=== PATIENT | male | born 1980 | race Caucasian/White ===

== ENCOUNTER 2016-03-08 19:53 | Emergency (ER) | payer OTHER ==
[~2016-03-08] VITALS: Ht 180.3 cm; Wt 78.3 kg
[~2016-03-08 19:53] MED LIST: ACIDOPHILUS LA1 EACH PO; ADVIL,NUPRIN,M200 MG PO; ALPRAZOLAM1 MG PO; ATARAX,VISTARIL50 MG PO; ATARAX10 MG PO; ATIVAN1 MG PO; ATIVAN2 MG PO; BACTRIM,SEPT1 TABLET PO; BACTROBAN OINTM22 GM TP; CLEOCIN300 MG PO; CLONIDINE HCL0.1 MG PO; CLONIDINE HCL0.3 MG PO; CYANOCOBALAM1000 MCG PO; DIAZEPAM10 MG PO; DISULFIRAM250 MG PO; EXCEDRIN MIGRA1 EAC3 PO; FIORICET 50-301 EACH PO; FIORICET,ESG1 TABLET PO; FLAGYL500 MG PO; FLEXERIL10 MG PO; FLEXERIL5 MG PO; FOLIC ACID1 MG PO; GABAPENTIN600 MG PO; HYDROCODON-ACE1 EAC7 PO; HYDROXYZINE HCL50 MG PO; HYDROXYZINE PAM50 MG PO; INDOCIN50 MG PO; KENALOG,ARISTOC80 G1 TP; KEPPRA500 MG PO; LIBRIUM10 MG PO; LIBRIUM25 MG PO; LISINOPRIL20 MG PO; LORAZEPAM1 MG PO; LORTAB 5-325 M1 EACH PO; MOTRIN IB200 MG PO; MOTRIN800 MG PO; NAPROSYN500 MG PO; NEURONTIN600 MG PO; NICOTINE PATCH1 EAC1 TD; ONDANSETRON HCL4 MG PO; PEN-VEE K,VEET500 MG PO; PERCOCET 5/31 TABLET PO; PRAZOSIN HCL1 MG PO; PREDNISONE10 M1 PO; PREDNISONE50 MG PO; PRILOSEC20 MG PO; PROMETHAZINE HC25 M1 PO; RIZATRIPTAN10 MG PO; STADOL NASAL2.5 ML NS; SUBOXONE 4 MG-1 EACH SL; SUBOXONE 8 MG-1 EAC2 SL; THERAGRAN1 TABLET PO; THIAMINE HCL100 MG PO; TYLENOL REGULA325 MG PO; Thiamine,Vitamin B1 PO; ULTRAM50 MG PO; VALIUM5 MG PO; VITAMIN B-1100 MG PO; VYVANSE70 MG PO; XANAX0.5 MG PO; XANAX1 MG PO; ZESTRIL10 MG PO; ZESTRIL20 MG PO; ZOFRAN ODT4 MG PO; ZOFRAN4 MG PO; ZOLOFT100 MG PO; ZOLOFT25 MG PO
[2016-03-08 20:32] VITALS: BP 147/101
== END 2016-03-08 22:11 | disposition left against medical advice (07) ==
LOC: EME 19:53
DX: F10.10 Alcohol abuse, uncomplicated (principal); Z53.21 Procedure and treatment not carried out due to patient leaving prior to being seen by health care provider
CPT/HCPCS: 80053; 83690; 85027; G0480

== ENCOUNTER 2016-03-30 14:27 | Emergency (ER) | payer OTHER ==
[~2016-03-30] VITALS: Ht 180.3 cm; Wt 77.1 kg
[2016-03-30 16:58] LABS: HEMATOCRIT 44.5 % (38.0-50.0); MCH 32.2 PG (29.0-34.0); MCHC 35.3 G/DL (30.0-36.0); MCV 91.2 FL (86-99); MEAN PLAT.VOLUME 8.9 uM^3 (9.0-12.4); PLATELET COUNT 349 K/uL (156-360); RBC DIS.WIDTH-CV 13.2 % (11.8-14.6); RBC DIS.WIDTH-SD 43.5 % (39-53); RED BLOOD COUNT 4.88 M/uL (4.00-5.50); WHITE BLOOD COUNT 10.7 K/uL (4.1-10.2)
[2016-03-30 17:11] LABS: CHLORIDE 106 mEq/L (99-109); SODIUM 145 mEq/L (136-147)
[2016-03-30 17:13] LABS: GLUCOSE 96 mg/dL (70-99)
[2016-03-30 17:14] LABS: ANION GAP 14 MEQ/L (2-14)
[2016-03-30 17:15] LABS: TOTAL BILIRUBIN 0.3 mg/dL (0.0-1.0)
[2016-03-30 17:16] LABS: SERUM ETHYL ALCOHOL 332 mg/dL
[2016-03-30 17:17] LABS: ALKALINE PHOSPHATASE 67 IU/L (3-129); GFR ESTIMATE (CALCULATED) > 59 mL/min/
[2016-03-30 17:18] LABS: UREA NITROGEN (BUN) 11 mg/dL (9-23)
[2016-03-30 17:26] LABS: AMPHETAMINE NEGATIVE (500 ng/mL); BARBITURATES NEGATIVE (200 ng/mL); BENZODIAZEPINES PRESUMPTIVE POSITIVE (150 ng/mL); COCAINE NEGATIVE (150 ng/mL); INTERNAL CONTROLS VALID? YES; METHADONE NEGATIVE (200 ng/mL); METHAMPHETAMINE NEGATIVE (500 ng/mL); OPIATES (MORPHINE) NEGATIVE (100 ng/mL); OXYCODONE NEGATIVE (100 ng/mL); PHENCYCLIDINE NEGATIVE (25 ng/mL); PROPOXYPHENE NEGATIVE (300 ng/mL); THC CANNABINOIDS NEGATIVE (50 ng/mL); TRICYCLIC ANTIDEPRESSANTS NEGATIVE (300 ng/mL)
[2016-03-30 17:27] LABS: ADD MEDTOX COMMENT Y
[2016-03-30 18:16] LABS: BENZODIAZEPINES, URINE SCREEN POSITIVE (200 ng/mL)
[2016-03-31] MEDS ORDERED: LIBRIUM25 MG PO (02:30)
[2016-03-31 03:04] VITALS: BP 139/76
== END 2016-03-31 03:05 | disposition home or self-care (01) ==
LOC: EME 14:27
PROVIDERS: Emergency Medicine
DX: F33.8 Other recurrent depressive disorders (principal); R44.3 Hallucinations, unspecified; F10.229 Alcohol dependence with intoxication, unspecified; I10 Essential (primary) hypertension; G43.909 Migraine, unspecified, not intractable, without status migrainosus; F17.200 Nicotine dependence, unspecified, uncomplicated
CPT/HCPCS: 80053; 84999; 85027; 90837; 99281; 99285; G0480; J3360; J3411; J7030

== ENCOUNTER 2016-05-03 12:53 | Emergency (ER) | payer OTHER ==
[~2016-05-03] VITALS: Ht 180.3 cm; Wt 77.4 kg
[2016-05-03 13:46] LABS: HEMATOCRIT 41.5 % (38.0-50.0); MCH 32.7 PG (29.0-34.0); MCHC 36.1 G/DL (30.0-36.0); MCV 90.4 FL (86-99); MEAN PLAT.VOLUME 9.5 uM^3 (9.0-12.4); PLATELET COUNT 203 K/uL (156-360); RBC DIS.WIDTH-CV 12.7 % (11.8-14.6); RBC DIS.WIDTH-SD 41.6 % (39-53); RED BLOOD COUNT 4.59 M/uL (4.00-5.50); WHITE BLOOD COUNT 10.7 K/uL (4.1-10.2)
[2016-05-03 13:57] LABS: CHLORIDE 106 mEq/L (99-109); SODIUM 144 mEq/L (136-147)
[2016-05-03 13:59] LABS: GLUCOSE 81 mg/dL (70-99)
[2016-05-03 14:01] LABS: ANION GAP 11 MEQ/L (2-14); TOTAL BILIRUBIN 0.9 mg/dL (0.0-1.0)
[2016-05-03 14:02] LABS: SERUM ETHYL ALCOHOL 130 mg/dL
[2016-05-03 14:03] LABS: ALKALINE PHOSPHATASE 70 IU/L (3-129); GFR ESTIMATE (CALCULATED) > 59 mL/min/
[2016-05-03 14:04] LABS: UREA NITROGEN (BUN) 15 mg/dL (9-23)
[2016-05-03 14:07] LABS: LIPASE 26 U/L (1.0-51.0)
[2016-05-03 14:28] LABS: ADD MIUA? YES; BILIRUBIN NEGATIVE; BLOOD SMALL; COLOR YELLOW ((YELLOW)); GLUCOSE (STRIP) NEGATIVE; KETONES NEGATIVE; LEUKOCYTES NEGATIVE; NITRITE NEGATIVE; PROTEIN (STRIP) NEGATIVE; SPECIFIC GRAVITY 1.019 (1.000-1.030); UROBILINOGEN 0.2 MG/DL (0.2-1.0)
[2016-05-03 14:30] LABS: BACTERIA NONE SEEN /HPF; EPITHELIAL CELLS RARE /HPF; MUCUS TRACE /LPF; RED BLOOD CELLS 0-5 /HPF (0-5); WHITE BLOOD CELLS 0-5 /HPF (0-5)
[2016-05-03 14:36] LABS: ADD MEDTOX COMMENT Y; AMPHETAMINE NEGATIVE (500 ng/mL); BARBITURATES NEGATIVE (200 ng/mL); BENZODIAZEPINES PRESUMPTIVE POSITIVE (150 ng/mL); COCAINE NEGATIVE (150 ng/mL); INTERNAL CONTROLS VALID? YES; METHADONE NEGATIVE (200 ng/mL); METHAMPHETAMINE NEGATIVE (500 ng/mL); OPIATES (MORPHINE) NEGATIVE (100 ng/mL); OXYCODONE NEGATIVE (100 ng/mL); PHENCYCLIDINE NEGATIVE (25 ng/mL); PROPOXYPHENE NEGATIVE (300 ng/mL); THC CANNABINOIDS NEGATIVE (50 ng/mL); TRICYCLIC ANTIDEPRESSANTS NEGATIVE (300 ng/mL)
[2016-05-03 16:57] LABS: BENZODIAZEPINES, URINE SCREEN POSITIVE (200 ng/mL)
[2016-05-03] MEDS ORDERED: TRAZODONE HCL50 MG PO (16:59)
[2016-05-03] MEDS ORDERED: THIAMINE HCL100 MG PO (16:59)
[2016-05-03] MEDS ORDERED: ATIVAN2 MG PO (16:59)
[2016-05-03 17:13] VITALS: BP 140/92
== END 2016-05-03 17:17 | disposition home or self-care (01) ==
LOC: EME 12:53
PROVIDERS: Physician Assistant Medical
DX: F10.239 Alcohol dependence with withdrawal, unspecified (principal); R31.9 Hematuria, unspecified; R10.30 Lower abdominal pain, unspecified; R11.2 Nausea with vomiting, unspecified; F17.200 Nicotine dependence, unspecified, uncomplicated; Y90.6 Blood alcohol level of 120-199 mg/100 ml
CPT/HCPCS: 80053; 81003; 83690; 84999; 85027; 99281; 99285; G0480

== ENCOUNTER 2016-06-22 15:28 | Inpatient (IN) | payer OTHER ==
[~2016-06-22] VITALS: Ht 180.3 cm; Wt 78.8 kg
[~2016-06-22 15:28] MED LIST changes: +TRAZODONE HCL50 MG PO
[2016-06-22 16:59] LABS: HEMATOCRIT 45.1 % (38.0-50.0); MCH 32.1 PG (29.0-34.0); MCV 91.7 FL (86-99); MEAN PLAT.VOLUME 9.2 uM^3 (9.0-12.4); PLATELET COUNT 316 K/uL (156-360); RBC DIS.WIDTH-CV 12.6 % (11.8-14.6); RBC DIS.WIDTH-SD 42.5 % (39-53); RED BLOOD COUNT 4.92 M/uL (4.00-5.50); WHITE BLOOD COUNT 13.3 K/uL (4.1-10.2)
[2016-06-22 17:12] LABS: CHLORIDE 93 mEq/L (99-109); POTASSIUM 4.3 mEq/L (3.7-5.4); SODIUM 134 mEq/L (136-147)
[2016-06-22 17:14] LABS: GLUCOSE 77 mg/dL (70-99)
[2016-06-22 17:15] LABS: ANION GAP 25 MEQ/L (2-14)
[2016-06-22 17:17] LABS: SERUM ETHYL ALCOHOL 240 mg/dL
[2016-06-22 17:18] LABS: GFR ESTIMATE (CALCULATED) > 59 mL/min/
[2016-06-22 17:19] LABS: UREA NITROGEN (BUN) 11 mg/dL (9-23)
[2016-06-22] MEDS ORDERED: ADDERALL30 MG PO (23:29)
[2016-06-22] MEDS ORDERED: VALIUM10 MG PO (23:30)
[2016-06-22] MEDS ORDERED: DAILY VALUE1 EACH PO (23:31)
[2016-06-22] MEDS ORDERED: XANAX0.5 MG PO (23:31)
[2016-06-23 03:35] LABS: MAGNESIUM 1.8 mg/dL (1.3-2.7)
[2016-06-23 07:03] VITALS: BP 142/82
[2016-06-23 07:22] VITALS: BP 179/88
[2016-06-23 07:41] VITALS: BP 179/88
[2016-06-23 09:35] LABS: EOSINOPHIL (%) 1.7 % (0-5); EOSINOPHIL COUNT 0.2 K/uL (0-0.3); HEMATOCRIT 38.8 % (38.0-50.0); IMMATURE GRANULOCYTE (%) 0.3 % (0.0-0.7); INSTRUMENT ABS NEUTROPHIL CT 6.8 K/uL; LYMPHOCYTE COUNT 1.9 K/uL (1.0-2.8); MCH 32.1 PG (29.0-34.0); MCHC 34.5 G/DL (30.0-36.0); MONOCYTE (%) 6.6 % (3-12); MONOCYTE COUNT 0.6 K/uL (0-0.8); NEUTROPHIL (%) 71.5 % (45-76); NEUTROPHIL COUNT 6.8 K/uL (1.8-6.4); RBC DIS.WIDTH-CV 12.4 % (11.8-14.6); RBC DIS.WIDTH-SD 42.8 % (39-53); RED BLOOD COUNT 4.17 M/uL (4.00-5.50); WHITE BLOOD COUNT 9.5 K/uL (4.1-10.2)
[2016-06-23 10:01] LABS: ALKALINE PHOSPHATASE 56 IU/L (3-129); ANION GAP 15 MEQ/L (2-14); CHLORIDE 94 MEQ/L (99-109); GFR ESTIMATE (CALCULATED) > 59 mL/min/; GLUCOSE 91 mg/dL (70-99); MAGNESIUM 1.7 mg/dl (1.3-2.7); POTASSIUM 3.8 MEQ/L (3.7-5.4); SAMPLE HEMOLYSIS CHECK 0; SAMPLE ICTERIC CHECK 0; SAMPLE LIPEMIA CHECK 0; SODIUM 137 MEQ/L (136-147); TOTAL BILIRUBIN 2.5 MG/DL (0.0-1.0); UREA NITROGEN (BUN) 7 mg/dL (9-23)
[2016-06-23 11:18] VITALS: BP 169/95
[2016-06-23 11:22] LABS: MEAN PLAT.VOLUME 10.1 uM^3 (9.0-12.4); PLAT.SUFFICIENCY ADEQUATE; PLATELET COUNT 197 K/uL (156-360)
[2016-06-23 12:47] LABS: BARBITUATES QUANT VALUE 0 NG/ML; BENZODIAZEPINES, URINE SCREEN POSITIVE (200 ng/mL); MARIJUANA QUANT VALUE 0 NG/ML; OPIATES QUANTITATIVE VALUE 0 NG/ML; PHENCYCLIDINE QUANT VALUE 0 NG/ML
[2016-06-23 15:35] VITALS: BP 150/97
[2016-06-23 20:59] VITALS: BP 126/87
[2016-06-24 00:14] VITALS: BP 156/86
[2016-06-24 06:05] LABS: EOSINOPHIL (%) 6.1 % (0-5); EOSINOPHIL COUNT 0.5 K/uL (0-0.3); HEMATOCRIT 41.6 % (38.0-50.0); IMMATURE GRANULOCYTE (%) 0.3 % (0.0-0.7); INSTRUMENT ABS NEUTROPHIL CT 4.8 K/uL; LYMPHOCYTE COUNT 2.1 K/uL (1.0-2.8); MCH 32.4 PG (29.0-34.0); MCHC 35.3 G/DL (30.0-36.0); MCV 91.6 FL (86-99); MEAN PLAT.VOLUME 10.6 uM^3 (9.0-12.4); MONOCYTE (%) 5.1 % (3-12); MONOCYTE COUNT 0.4 K/uL (0-0.8); NEUTROPHIL (%) 60.8 % (45-76); NEUTROPHIL COUNT 4.8 K/uL (1.8-6.4); PLATELET COUNT 154 K/uL (156-360); RBC DIS.WIDTH-CV 12.1 % (11.8-14.6); RBC DIS.WIDTH-SD 40.9 % (39-53); RED BLOOD COUNT 4.54 M/uL (4.00-5.50); WHITE BLOOD COUNT 7.9 K/uL (4.1-10.2)
[2016-06-24 06:08] VITALS: BP 144/100
[2016-06-24 06:28] LABS: ANION GAP 16 MEQ/L (2-14); CHLORIDE 96 MEQ/L (99-109); GFR ESTIMATE (CALCULATED) > 59 mL/min/; GLUCOSE 103 mg/dL (70-99); POTASSIUM 3.3 MEQ/L (3.7-5.4); SAMPLE HEMOLYSIS CHECK 0; SAMPLE ICTERIC CHECK 0; SAMPLE LIPEMIA CHECK 0; SODIUM 137 MEQ/L (136-147); UREA NITROGEN (BUN) 6 mg/dL (9-23)
[2016-06-24 08:00] VITALS: BP 136/95
[2016-06-24 09:09] LABS: ALKALINE PHOSPHATASE 52 IU/L (3-129); DIRECT BILIRUBIN 0.4 mg/dL (0.0-0.3); MAGNESIUM 1.7 mg/dl (1.3-2.7)
[2016-06-24 09:11] LABS: TOTAL BILIRUBIN 1.7 MG/DL (0.0-1.0)
[2016-06-24 12:00] VITALS: BP 154/102
== END 2016-06-24 13:05 | disposition left against medical advice (07) | DRG 894 ==
LOC: EME → EDBD 15:28 → EDOF 06-23 02:52 → 4SOUTH 06-23 02:52
PROVIDERS: Student in an Organized Health Care Education/Training Program
DX: F10.229 Alcohol dependence with intoxication, unspecified (principal); S09.90XA Unspecified injury of head, initial encounter; F10.239 Alcohol dependence with withdrawal, unspecified; E87.2 Acidosis; E87.1 Hypo-osmolality and hyponatremia; Y90.7 Blood alcohol level of 200-239 mg/100 ml; F32.9 Major depressive disorder, single episode, unspecified; I10 Essential (primary) hypertension; F17.210 Nicotine dependence, cigarettes, uncomplicated; S60.222A Contusion of left hand, initial encounter; S50.12XA Contusion of left forearm, initial encounter; F15.21 Other stimulant dependence, in remission; F11.10 Opioid abuse, uncomplicated; J34.1 Cyst and mucocele of nose and nasal sinus; E83.39 Other disorders of phosphorus metabolism; W06.XXXA Fall from bed, initial encounter; Y93.9 Activity, unspecified; Y92.9 Unspecified place or not applicable; Y99.9 Unspecified external cause status
CPT/HCPCS: 70450; 70486; 73090; 73130; 80048; 80053; 80076; 80306 90; 83735; 84100; 85025; 85027; 90839; 99281; 99285; G0480; J2060; J2405; J3411; J7030; Q0177

== ENCOUNTER 2016-08-05 23:20 | Emergency (ER) | payer OTHER ==
[~2016-08-05] VITALS: Ht 180.3 cm; Wt 81.2 kg
[~2016-08-05 23:20] MED LIST changes: +ADDERALL30 MG PO; +DAILY VALUE1 EACH PO; +VALIUM10 MG PO
[2016-08-06 00:39] VITALS: BP 115/62
== END 2016-08-06 00:40 | disposition home or self-care (01) ==
LOC: EME 23:20
DX: G43.909 Migraine, unspecified, not intractable, without status migrainosus (principal); I10 Essential (primary) hypertension; F17.200 Nicotine dependence, unspecified, uncomplicated; F32.9 Major depressive disorder, single episode, unspecified
CPT/HCPCS: 99281; 99283; J1885

== ENCOUNTER 2016-09-04 21:10 | Emergency (ER) | payer OTHER ==
[~2016-09-04] VITALS: Ht 180.3 cm; Wt 76.0 kg
[2016-09-04 23:37] LABS: HEMATOCRIT 48.9 % (38.0-50.0); MCH 32.1 PG (29.0-34.0); MCHC 34.8 G/DL (30.0-36.0); MCV 92.3 FL (86-99); MEAN PLAT.VOLUME 9.4 uM^3 (9.0-12.4); PLATELET COUNT 343 K/uL (156-360); RBC DIS.WIDTH-CV 12.3 % (11.8-14.6); RBC DIS.WIDTH-SD 42.4 % (39-53); WHITE BLOOD COUNT 12.3 K/uL (4.1-10.2)
[2016-09-04 23:51] LABS: CHLORIDE 104 mEq/L (99-109); POTASSIUM 4.2 mEq/L (3.7-5.4); SODIUM 143 mEq/L (136-147)
[2016-09-04 23:53] LABS: GLUCOSE 123 mg/dL (70-99)
[2016-09-04 23:54] LABS: ANION GAP 13 MEQ/L (2-14)
[2016-09-04 23:55] LABS: TOTAL BILIRUBIN 1.7 mg/dL (0.0-1.0)
[2016-09-04 23:57] LABS: ALKALINE PHOSPHATASE 72 IU/L (3-129); GFR ESTIMATE (CALCULATED) > 59 mL/min/
[2016-09-04 23:58] LABS: UREA NITROGEN (BUN) 15 mg/dL (9-23)
[2016-09-05 00:40] LABS: SERUM ETHYL ALCOHOL 292 mg/dL
[2016-09-05 00:43] LABS: LIPASE 29 U/L (1.0-51.0)
[2016-09-05 01:37] LABS: ADD MIUA? YES; BILIRUBIN NEGATIVE; BLOOD NEGATIVE; COLOR YELLOW ((YELLOW)); GLUCOSE (STRIP) NEGATIVE; KETONES NEGATIVE; LEUKOCYTES NEGATIVE; NITRITE NEGATIVE; PROTEIN (STRIP) 100; SPECIFIC GRAVITY 1.019 (1.000-1.030)
[2016-09-05 01:40] LABS: BACTERIA RARE /HPF; EPITHELIAL CELLS NONE SEEN /HPF; MUCUS TRACE /LPF; RED BLOOD CELLS 0-5 /HPF (0-5); UCUL ADDED? NO; WHITE BLOOD CELLS 0-5 /HPF (0-5)
[2016-09-05 01:48] LABS: ADD MEDTOX COMMENT Y; AMPHETAMINE NEGATIVE (500 ng/mL); BARBITURATES NEGATIVE (200 ng/mL); BENZODIAZEPINES PRESUMPTIVE POSITIVE (150 ng/mL); COCAINE NEGATIVE (150 ng/mL); INTERNAL CONTROLS VALID? YES; METHADONE NEGATIVE (200 ng/mL); METHAMPHETAMINE NEGATIVE (500 ng/mL); OPIATES (MORPHINE) NEGATIVE (100 ng/mL); OXYCODONE NEGATIVE (100 ng/mL); PHENCYCLIDINE NEGATIVE (25 ng/mL); PROPOXYPHENE NEGATIVE (300 ng/mL); THC CANNABINOIDS NEGATIVE (50 ng/mL); TRICYCLIC ANTIDEPRESSANTS NEGATIVE (300 ng/mL)
[2016-09-05] MEDS ORDERED: ZOFRAN4 MG PO (02:27)
[2016-09-05 02:59] VITALS: BP 129/118
[2016-09-05 03:11] LABS: BENZODIAZEPINES, URINE SCREEN POSITIVE (200 ng/mL)
== END 2016-09-05 02:59 | disposition home or self-care (01) ==
LOC: EME 21:10
PROVIDERS: Emergency Medicine
DX: F10.129 Alcohol abuse with intoxication, unspecified (principal); Y90.8 Blood alcohol level of 240 mg/100 ml or more; F41.9 Anxiety disorder, unspecified; F32.9 Major depressive disorder, single episode, unspecified; F17.200 Nicotine dependence, unspecified, uncomplicated
CPT/HCPCS: 80053; 81003; 83690; 84999; 85027; 99281; 99285; G0480; J2405; J7030

== ENCOUNTER 2016-09-25 14:35 | Emergency (ER) | payer OTHER ==
[~2016-09-25] VITALS: Ht 182.9 cm; Wt 80.0 kg
[2016-09-25 15:26] LABS: CHLORIDE 102 mEq/L (99-109); POTASSIUM 3.5 mEq/L (3.7-5.4); SODIUM 140 mEq/L (136-147)
[2016-09-25 15:27] LABS: GLUCOSE 152 mg/dL (70-99)
[2016-09-25 15:29] LABS: ANION GAP 19 MEQ/L (2-14); BASOPHIL COUNT 0.1 K/uL (0-0.1); EOSINOPHIL (%) 2.6 % (0-5); EOSINOPHIL COUNT 0.3 K/uL (0-0.3); IMMATURE GRANULOCYTE (%) 0.3 % (0.0-0.7); LYMPHOCYTE COUNT 2.8 K/uL (1.0-2.8); MCHC 34.7 G/DL (30.0-36.0); MCV 92.3 FL (86-99); MEAN PLAT.VOLUME 8.9 uM^3 (9.0-12.4); MONOCYTE (%) 6.3 % (3-12); MONOCYTE COUNT 0.6 K/uL (0-0.8); NEUTROPHIL (%) 61.5 % (45-76); PLATELET COUNT 365 K/uL (156-360); RBC DIS.WIDTH-CV 12.2 % (11.8-14.6); RBC DIS.WIDTH-SD 41.4 % (39-53); RED BLOOD COUNT 4.66 M/uL (4.00-5.50); WHITE BLOOD COUNT 9.7 K/uL (4.1-10.2)
[2016-09-25 15:31] LABS: GFR ESTIMATE (CALCULATED) > 59 mL/min/
[2016-09-25 15:32] LABS: UREA NITROGEN (BUN) 15 mg/dL (9-23)
[2016-09-25 17:45] VITALS: BP 109/89
== END 2016-09-25 17:49 | disposition home or self-care (01) ==
LOC: EME 14:35
PROVIDERS: Emergency Medicine
DX: F10.129 Alcohol abuse with intoxication, unspecified (principal); E86.0 Dehydration; F32.9 Major depressive disorder, single episode, unspecified; F17.200 Nicotine dependence, unspecified, uncomplicated
CPT/HCPCS: 80048; 85025; 93005; 99281; 99285; J2405; J7120

== ENCOUNTER 2016-10-11 19:58 | Emergency (ER) | payer OTHER ==
[~2016-10-11] VITALS: Ht 180.3 cm; Wt 81.6 kg
[2016-10-11 20:58] VITALS: BP 138/106
== END 2016-10-11 20:59 | disposition home or self-care (01) ==
LOC: EME 19:58
DX: R23.4 Changes in skin texture (principal); F41.9 Anxiety disorder, unspecified
CPT/HCPCS: 99281; 99282

== ENCOUNTER 2016-10-14 13:40 | Emergency (ER) | payer OTHER ==
[~2016-10-14] VITALS: Ht 180.3 cm; Wt 82.5 kg
[2016-10-14 15:05] VITALS: BP 120/70
== END 2016-10-14 15:08 | disposition home or self-care (01) ==
LOC: EME 13:40
DX: Z76.0 Encounter for issue of repeat prescription (principal); F17.200 Nicotine dependence, unspecified, uncomplicated

== ENCOUNTER 2016-10-19 23:17 | Emergency (ER) | payer OTHER ==
[~2016-10-19] VITALS: Ht 180.3 cm; Wt 83.0 kg
[2016-10-20 02:13] LABS: HEMATOCRIT 38.5 % (38.0-50.0); MCH 31.9 PG (29.0-34.0); MCV 93.7 FL (86-99); PLATELET COUNT 271 K/uL (156-360); RBC DIS.WIDTH-CV 12.7 % (11.8-14.6); RBC DIS.WIDTH-SD 43.7 % (39-53); RED BLOOD COUNT 4.11 M/uL (4.00-5.50); WHITE BLOOD COUNT 9.5 K/uL (4.1-10.2)
[2016-10-20 02:22] LABS: CHLORIDE 108 mEq/L (99-109); POTASSIUM 3.5 mEq/L (3.7-5.4); SODIUM 140 mEq/L (136-147)
[2016-10-20 02:25] LABS: GLUCOSE 140 mg/dL (70-99)
[2016-10-20 02:26] LABS: ANION GAP 9 MEQ/L (2-14)
[2016-10-20 02:27] LABS: TOTAL BILIRUBIN 0.5 mg/dL (0.0-1.0)
[2016-10-20 02:28] LABS: ALKALINE PHOSPHATASE 64 IU/L (3-129); GFR ESTIMATE (CALCULATED) > 59 mL/min/
[2016-10-20 02:29] LABS: UREA NITROGEN (BUN) 18 mg/dL (9-23)
[2016-10-20 02:32] LABS: LIPASE 27 U/L (1.0-51.0)
[2016-10-20] MEDS ORDERED: LIBRIUM25 MG PO (04:59)
[2016-10-20] MEDS ORDERED: B-1100 MG PO (05:01)
[2016-10-20 05:30] VITALS: BP 141/91
== END 2016-10-20 05:32 | disposition home or self-care (01) ==
LOC: EME 23:17
PROVIDERS: Emergency Medicine
DX: F10.239 Alcohol dependence with withdrawal, unspecified (principal); I10 Essential (primary) hypertension; F32.9 Major depressive disorder, single episode, unspecified; F41.9 Anxiety disorder, unspecified; F17.200 Nicotine dependence, unspecified, uncomplicated
CPT/HCPCS: 80053; 83690; 85027; 99281; 99284

== ENCOUNTER 2016-11-04 23:19 | Emergency (ER) | payer OTHER ==
[~2016-11-04] VITALS: Ht 180.3 cm; Wt 85.0 kg
[~2016-11-04 23:19] MED LIST changes: +B-1100 MG PO
[2016-11-05 00:18] VITALS: BP 112/72
== END 2016-11-05 00:21 | disposition home or self-care (01) ==
LOC: EME 23:19 → EXP 23:19
DX: F98.8 Other specified behavioral and emotional disorders with onset usually occurring in childhood and adolescence (principal); F17.200 Nicotine dependence, unspecified, uncomplicated
CPT/HCPCS: 99281; 99282

== ENCOUNTER 2016-11-11 23:02 | Emergency (ER) | payer OTHER ==
[~2016-11-11] VITALS: Ht 180.3 cm; Wt 86.7 kg
[2016-11-12 02:08] VITALS: BP 122/72
== END 2016-11-12 02:09 | disposition home or self-care (01) ==
LOC: EME 23:02 → RME 23:02
DX: L76.32 Postprocedural hematoma of skin and subcutaneous tissue following other procedure (principal); Y84.8 Other medical procedures as the cause of abnormal reaction of the patient, or of later complication, without mention of misadventure at the time of the procedure; F17.200 Nicotine dependence, unspecified, uncomplicated
CPT/HCPCS: 93971; 99281; 99283

== ENCOUNTER 2016-11-17 09:36 | Emergency (ER) | payer OTHER ==
[~2016-11-17] VITALS: Ht 180.3 cm; Wt 84.3 kg
[2016-11-17 10:58] VITALS: BP 144/92
== END 2016-11-17 10:59 | disposition home or self-care (01) ==
LOC: EME 09:36
DX: F13.10 Sedative, hypnotic or anxiolytic abuse, uncomplicated (principal); I10 Essential (primary) hypertension; R56.9 Unspecified convulsions; F17.200 Nicotine dependence, unspecified, uncomplicated
CPT/HCPCS: 99281; 99283

== ENCOUNTER 2017-06-13 21:55 | Emergency (ER) | payer OTHER ==
[~2017-06-13] VITALS: Ht 180.3 cm; Wt 90.1 kg
[2017-06-13 22:07] VITALS: BP 140/89
== END 2017-06-14 00:50 | disposition left against medical advice (07) ==
LOC: EME 21:55
DX: G43.909 Migraine, unspecified, not intractable, without status migrainosus (principal); Z53.21 Procedure and treatment not carried out due to patient leaving prior to being seen by health care provider